=== PATIENT | male | born 1980 | race African-American/Black ===

== ENCOUNTER 2020-06-21 15:59 | Outpatient (REF) | payer OTHER, SELFPAY ==
[2020-06-21 16:36] LABS: COVID-19 Test Negative (Negative)
== END 2020-06-21 16:00 | disposition home or self-care (01) ==
LOC: HO.LAB 15:59
PROVIDERS: Visit Provider Internal Medicine
DX: Z20.828 Contact with and (suspected) exposure to other viral communicable diseases (principal)
CPT/HCPCS: 87635; C9803

== ENCOUNTER 2020-08-24 09:15 | Outpatient (REF) | payer OTHER, SELFPAY ==
[2020-08-24 09:31] LABS: COVID-19 Test Positive (Negative); IDNOW Serial# 55D5AD1C
== END 2020-08-24 09:16 | disposition home or self-care (01) ==
LOC: HO.LAB 09:15
PROVIDERS: Visit Provider Internal Medicine
DX: Z20.822 Contact with and (suspected) exposure to COVID-19 (principal)
CPT/HCPCS: 36415; 87635; C9803